=== PATIENT | female | born 1975 | race African-American/Black ===

== ENCOUNTER 2020-11-29 08:53 | Outpatient (CLI) | payer BC | END 2020-11-29 08:54 | disposition home or self-care (01) | LOC: CSHMAMMO 08:53 | PROVIDERS: ATTEND Family Medicine | DX: N60.02 Solitary cyst of left breast (principal) | CPT/HCPCS: 77066; G0279 ==

== ENCOUNTER 2025-08-11 08:40 | Outpatient (CLI) | payer BC | END 2025-08-11 08:41 | disposition home or self-care (01) | LOC: CSHMAMMO 08:40 | PROVIDERS: ATTEND Family Medicine | DX: Z12.31 Encounter for screening mammogram for malignant neoplasm of breast (principal); Z80.3 Family history of malignant neoplasm of breast | CPT/HCPCS: 77063; 77067 ==